=== PATIENT | female | born 1970 | race Asian ===

== ENCOUNTER 2019-08-18 13:48 | Emergency (ER) | payer OTHER ==
[~2019-08-18] VITALS: Ht 154.9 cm; Wt 55.5 kg
[2019-08-18] MEDS ORDERED: ATOR20TA86 PO (13:51)
[2019-08-18] MEDS ORDERED: IBUP-2070 PO (13:51)
[2019-08-18] MEDS ORDERED: IBUPROFEN 600 MG TABLET PO ONE (15:00)
[2019-08-18 15:55] VITALS: BP 122/70
== END 2019-08-18 15:55 | disposition home or self-care (01) ==
LOC: EMS 13:50
DX: S16.1XXA Strain of muscle, fascia and tendon at neck level, initial encounter (principal); M54.12 Radiculopathy, cervical region; E78.00 Pure hypercholesterolemia, unspecified; Z79.899 Other long term (current) drug therapy; Z98.890 Other specified postprocedural states; V49.9XXA Car occupant (driver) (passenger) injured in unspecified traffic accident, initial encounter; Y93.89 Activity, other specified; Y92.488 Other paved roadways as the place of occurrence of the external cause; Y99.8 Other external cause status